=== PATIENT | male | born 1945 | race Caucasian/White ===

== ENCOUNTER 2017-08-01 08:43 | Inpatient (IN) | payer OTHER ==
[~2017-08-01] VITALS: Ht 190.5 cm; Wt 115.7 kg
--- NOTE | ~2017-08-01 | HC ---
[facility] [place] [address] CONSULTATION Name: JERI SETH Room #: 207-P ADM IN M.R.#: [id number] Admission: 08/01/17 Attend Phys: James Blue Discharge: Date of : 47 Report #: [id number] THIS REPORT FOR: //name// CC: Steffen Vazquez MD REASON FOR CONSULTATION: Abdominal pain, fever. HISTORY OF PRESENT ILLNESS: This 71-year-old male patient was seen in the [facility] Emergency Room with a 4-day history of epigastric abdominal pain. He also has had difficulty with nausea, vomiting and fever with temperature up to 102 degrees, now resolved. The patient has had diarrhea as well. 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 Vazquez, several weeks ago with similar symptoms. His symptoms resolved spontaneously. More recently, the patient saw his primary care physician, Dr. Moore, who referred him to the Emergency Room and he was admitted from there. Through the Emergency Room, he underwent a CT of the abdomen and pelvis, showing a low density lesion in the liver near the gallbladder fossa as well as gallstones and question of a gallbladder wall thickening. A small hiatal hernia was also seen. He then underwent an ultrasound showing mild enlargement of the common bile duct with cluster of stones in the gallbladder and a lesion in the liver adjacent to the gallbladder. This was suggestive of a cavernous hemangioma with recommendation for magnetic resonance imaging. I have been asked to see the patient for further evaluation and treatment. He does report worsening symptoms postprandially. He has had several similar episodes over the past 2 years, which spontaneously resolved. PAST MEDICAL HISTORY: Significant for hypertension and asthma. PAST SURGICAL HISTORY: Back surgery, appendectomy at 18 years old, tonsillectomy and adenoidectomy at 47 years old and eyelid surgery. HOME MEDICATIONS: Include budesonide, Osteo Bi-Flex, multivitamins, naproxen, Prilosec, Singulair, and Avalide. ALLERGIES: CODEINE causes nausea and vomiting. FAMILY HISTORY: Reviewed and noncontributory to this hospitalization. SOCIAL HISTORY: The patient denies use of tobacco or illicit drugs. He has 1-2 alcoholic drinks every 1-2 weeks. 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 [address] [address] CONSULTATION Name: JERI SETH MARIAH Room #: 207-P [facility] IN .R.#: [id number] Admission: 08/01/17 Attend Phys: James Blue Discharge: Date of : 47 Report #: [id number] REVIEW OF SYSTEMS: As per history of present illness. In addition: GENERAL: The patient reports fever and chills, now improved. Denies unintentional weight loss. HEENT: Denies changes in taste, vision, hearing, or smell. RESPIRATORY: Denies shortness of breath or COPD, has a history of asthma. CARDIOVASCULAR: Denies chest pain or palpitations. Has elevated troponin I levels. GASTROINTESTINAL: As per history of present illness. Denies bright red blood per rectum. Most recent colonoscopy was this past October by Dr. Steffen Silverman. He requires colonoscopy every 5 years for polyps. GENITOURINARY: Denies dysuria, urgency, increased urinary frequency or hematuria. MUSCULOSKELETAL: Denies myalgia or arthralgia. NEUROLOGIC: Denies headaches, numbness or tingling. PSYCHIATRIC: Denies depression, anxiety or suicidal ideations. SKIN AND INTEGUMENTARY: Denies new skin lesions, rashes, or moles. ENDOCRINE: Denies polydipsia, polyuria, heat or cold intolerance. HEMATOLOGIC: Denies easy bleeding, bruising or anemia. All other review of systems is negative. PHYSICAL EXAMINATION: VITAL SIGNS: Temperature 98.4, T-max 100.9, blood pressure 112/59, pulse 90, respirations 18. GENERAL: This is a well-developed, well-nourished 71-year-old male patient in no acute distress. HEENT: Atraumatic, normocephalic with moist mucosal membranes. Oropharynx is clear. He has no scleral icterus. NECK: Supple, no appreciable lymphadenopathy. Trachea is midline. CHEST: Clear bilaterally. CARDIOVASCULAR: Regular rate and rhythm. ABDOMEN: Soft, but tender to palpation in the upper epigastrium. He has negative Varela's sign, no rebound or guarding. No palpable masses, no appreciable hernias. GENITOURINARY: Normal external male genitalia. EXTREMITIES: No clubbing, cyanosis or edema. NEUROLOGIC: Cranial nerves 2-12 grossly intact. PSYCHIATRIC: Normal mood and affect. SKIN: No acute inflammatory changes, rashes or lesions present. LABORATORY STUDIES: CBC from this morning shows a white blood cell count 10.0, hemoglobin 15.7, hematocrit 46.0 and platelets 123. He had 80% segmented neutrophils. Electrolytes showed sodium 140, potassium 3.0, chloride 104, CO2 27, BUN 45, creatinine 1.5 and glucose 125. His lipase was normal at 228. Total bilirubin elevated at 1.3 and alkaline phosphatase elevated at 135. His transaminases were within normal limits. Lactate was at the upper end of normal [address] [place] [address] CONSULTATION Name: JERI SETH Room #: 207-P ADM IN M.R.#: [id number] Admission: 08/01/17 Attend Phys: James Blue Discharge: Date of : 47 Report #: [id number] at 2.0. Troponin I was elevated at 0.31. Follow up lactate was normal at 0.9. RADIOLOGIC STUDIES: Abdominal ultrasound and CT findings are as noted above. IMPRESSION AND PLAN: This is a 71-year-old male patient with a history of hypertension, reflux and asthma who has abdominal pain and gallstones. We discussed the pathophysiology and natural history of biliary disease as well as treatment alternatives and surgical options. The patient may benefit from cholecystectomy with cholangiogram. He would also benefit from further evaluation of his new hepatic lesion with MRI, as recommended by Radiology. The patient does have elevated levels and has been seen by cardiology. A stress echocardiogram has been ordered for tomorrow morning. If this is negative, would consider cholecystectomy. I would not want to proceed with cholecystectomy without having evaluated his new hepatic lesion adjacent to the gallbladder fossa, as this will be very close to the surgical site. The patient expressed understanding of the plan. I sincerely appreciate the opportunity to participate in the care of this patient and will leave further recommendations and orders in the electronic medical record as appropriate. <ELECTRONICALLY SIGNED> By: Devang Harrison MD, FACS 08/05/17 0716 1330 2130 Devang Harrison MD, FACS /nt
--- NOTE | ~2017-08-01 | EKG ---
[address] [address] ELECTROCARDIOGRAM REPORT Name: JERI SETH Room #: 207-P ADM IN M.R.#: [id number] Admission: 08/01/17 Attend Phys: James Blue Discharge: Date of : 47 Report #: [id number] THIS REPORT FOR: //name// [facility] ED Test Date: 2017-08-01 Test Time: 08:54:51 Pat Name: JERI SETH Department: Room: 207 Gender: M [employer] Clerk: HARITHA : 1945 Requested By: Anika Pearce Order Number: [id number] MD: Blue Suarez Measurements Intervals Sinclair Rate: 83 P: 55 TN: 174 QRS: -62 QRSD: 131 T: 76 QT: 414 QTc: 487 Interpretive Statements Sinus rhythm Left bundle branch block Compared to ECG 02/09/2013 11:26:05 Left bundle-branch block now present Sinus tachycardia no longer present Left-axis deviation no longer present Electronically Signed On 08-01-2017 21:02:40 CDT by Blue Suarez [email or web address] <ELECTRONICALLY SIGNED> By: Blue Suarez MD 08/01/17 2102 0854 0854 Blue Suarez MD /EPI
--- NOTE | ~2017-08-01 | S ---
[facility] [place] [address] SURGICAL PATH RPT PROCEDURE Name: JUNAID PRATT Room #: 423-1 ADM IN M.R.#: [id number] Admission: 08/01/17 Date of : 47 Discharge: Report #: [id number] Path Case #: [id number] PATHOLOGY REPORT COLLECTION DATE: 08/04/2017 RECEIVED DATE: 08/04/2017 SUBMITTING PHYS: Dr. James Blue OTHER PHYS: Dr. Fernando Harrison SPECIMEN(S) RECEIVED: A.Gallbladder and wedge resection liver bed * * * * * * * * * * * * FINAL DIAGNOSIS: Gallbladder and liver, cholecystectomy and wedge resection: - Gallbladder with necrotizing cholecystitis. - Gallbladder bed with hemorrhage. - Liver with mild periportal chronic inflammation. - Subcapsular liver with intraparenchymal hemorrhage. - No definitive liver lesion present, negative for malignancy. COMMENT: This case is co-reviewed by Dr. Arlene Dixon. PATHOLOGIST: Mark Davis M.D. REPORT ELECTRONICALLY SIGNED BY: Mark Davis M.D. DATE/TIME: 08/06/2017 11:45 * * * * * * * * * * * * GROSS PATHOLOGY: Received in formalin labeled "Junaid Pratt, gallbladder and wedge resection liver bed," is a 9.7 x 4.1 x 3.8 cm, previously opened gallbladder with pink-randhawa serosal surfaces. There is a moderate amount of attached white brown liver tissue measuring 5.7 x 3.2 x 0.5 cm. Opening the gallbladder reveals a velvety, red-brown mucosa and an average wall thickness of 0.1 cm. Calculi are not present and no masses are noted grossly. Video Game Animator sections from the body and fundus are submitted along with the proximal margin in cassette A1. Video Game Animator sections of the liver tissue are submitted in cassette A2. (CAA; 08/05/2017) CLINICAL HISTORY: Cholecystitis [facility] [address] [place] [address] SURGICAL PATH RPT PROCEDURE Name: ROLOJUNAID MARIAH Room #: [facility] ADM IN M.R.#: [id number] Admission: 08/01/17 Date of : 47 Discharge: Report #: [id number] Path Case #: [id number] INITIAL CPT CODE(S): A; 51661, 90582 Professional services performed by [facility] at [address] [place] [address] Technical services performed by [facility] at [address] [place] [address], [address] [address]. [facility] [place] [address] PHONE: [phone] DIRECTOR: Dexter Buchanan M.D. * * * END OF REPORT * * *
--- NOTE | ~2017-08-01 | HC ---
[facility] [place] [address] CONSULTATION Name: JERI SETH Room #: 207-[facility] IN M.R.#: [id number] Admission: 08/01/17 Attend Phys: James Blue Discharge: Date of : 47 Report #: [id number] THIS REPORT FOR: //name// CC: Fernando Blue DATE OF SERVICE: 08/01/2017 INDICATION: Positive troponins. HISTORY OF PRESENT ILLNESS: This is a 71-year-old gentleman presenting with abdominal pain and fevers for the past 4 days. He reports a dull ache all over his abdomen, on and off. It was associated with nausea, loss of appetite, fever and chills. He denies any episodes of chest pain, shortness of breath or palpitations. The troponin is elevated at 0.33. The patient has a history of asthma and hypertension. PAST MEDICAL HISTORY: Hypertension and asthma. ALLERGIES: CODEINE. MEDICATIONS: Include Avalide 150/12.5 mg daily, Singulair, Prilosec, Naprosyn. SOCIAL HISTORY: Denies tobacco use. FAMILY HISTORY: Negative for premature CAD. REVIEW OF SYSTEMS: A full 10-point review of systems performed. Only the pertinent positives and negatives are described in the HPI. PHYSICAL EXAMINATION: VITAL SIGNS: Blood pressure is 120/60, heart rate is 90 beats per minute. GENERAL APPEARANCE: This is an overweight male in no acute respiratory distress. HEAD AND EYES: Normocephalic. Sclerae are anicteric. ENT: Oral mucosa moist. NECK: Supple. LUNGS: Clear to auscultation. ABDOMEN: Soft, nontender. Bowel sounds positive. EXTREMITIES: No cyanosis, no edema. NEUROLOGIC: Alert and oriented x 3. LABORATORY VALUES: White count is 10.0, hemoglobin 15.7, sodium is 140, creatinine is 1.5. First troponin is 0.33, second troponin is 0.31. Abdominal ultrasound reveals gallstones. [address] [address] CONSULTATION Name: JERI SETH Room #: [facility] ADM IN M.R.#: [id number] Admission: 08/01/17 Attend Phys: James Blue Discharge: Date of : 47 Report #: [id number] ECG reveals sinus rhythm, nonspecific IVCD, nonspecific T-wave abnormalities. ASSESSMENT AND PLAN: 1. 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 Await surgical evaluation for gallbladder. 2. Peak troponin of 0.33, the significance is unclear at this time. He does have risk factors and will require an ischemic evaluation. He remains clinically stable at this time. We will schedule an echo for now. Once his abdominal process has been treated, he will need an ischemic evaluation. 3. Hypertension, continue with medications. 4. Asthma, stable from a respiratory standpoint. Thank you for allowing me to participate in the care of your patient. <ELECTRONICALLY SIGNED> By: Abimael Sevilla MD 08/02/17 0736 1706 17 Abimael Sevilla MD /ramses
--- NOTE | ~2017-08-01 | O ---
[facility] [place] [address] OPERATIVE REPORT Name: JERI SETH Room #: 207-P ADM IN M.R.#: [id number] Admission: 08/01/17 Attend Phys: James Blue Discharge: Date of : 47 Report #: [id number] THIS REPORT FOR: //name// CC: Fernando Blue DATE OF SERVICE: 08/03/2017 SURGEON: Devang Harrison MD PIE MAKER MACHINE: Rogelio Day MD PREOPERATIVE DIAGNOSES: 1. Acute cholecystitis. 2. Hepatic lesion. 3. Hypertension. 4. Asthma. POSTOPERATIVE DIAGNOSES: 1. Acute on chronic cholecystitis. 2. Hepatic lesion. 3. Hypertension. 4. Asthma. PROCEDURES: 1. Laparoscopic cholecystectomy with intraoperative cholangiogram and wedge resection of the gallbladder fossa. 2. This is a modifier 22 operation based on the length of time necessary to perform the operation whereby the operation took 4 times longer than the usual cholecystectomy with cholangiogram. The back wall of the gallbladder was both acutely and chronically inflamed with no clear plane between the gallbladder wall and liver bed. This required division of the liver for removal of the gallbladder (wedge resection). The lesion seen on the MRI was felt to have been taken with the specimen. ANESTHESIA: General endotracheal anesthesia and local anesthetic. ESTIMATED BLOOD LOSS: 300 mL. SPECIMEN: Gallbladder with wedge resection of the gallbladder fossa. COMPLICATIONS: None appreciated. INDICATION FOR PROCEDURE: This 71-year-old male patient was seen in the [place] Emergency Room with a 4-day history of epigastric abdominal pain, nausea, [facility] [address] [place] [address] OPERATIVE REPORT Name: JERI SETH MARIAH Room #: 207-P ADM IN M.R.#: [id number] Admission: 08/01/17 Attend Phys: James Blue Discharge: Date of : 47 Report #: [id number] vomiting and fever with a temperature up to 102 degrees Fahrenheit. The patient has had symptoms for quite some time. 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 His symptoms resolved spontaneously. More recently, the patient was seen by his primary care physician who referred him to the Emergency Room. He underwent a CT of the abdomen and pelvis, which revealed a low density lesion in the liver near the gallbladder fossa as well as gallstones and gallbladder wall thickening. Ultrasound showed enlargement of the common bile duct with a cluster of stones in the gallbladder and a lesion in the liver adjacent to the gallbladder. This was suggestive of a cavernous hemangioma. An MRI was ultimately performed, which revealed this to be an inflammatory mass or abscess. Necrotic tumor was not excluded. The patient presents now for laparoscopic cholecystectomy with cholangiogram. OPERATIVE FINDINGS: Upon entrance into the abdominal cavity, the gallbladder appeared to be acutely inflamed. It required drainage with a Topel needle in order to grasp the gallbladder. The wall itself was thickened with both acute and chronic inflammatory changes. The critical view consisting of cystic artery, cystic duct and lower edge of the gallbladder forming a window through which the liver was visible was seen prior to clipping the cystic duct for cholangiogram. Attempted cholangiogram showed filling of the cystic duct; however, there was no passage of contrast into the common bile duct or intrahepatic ducts. The back wall of the gallbladder adjacent to the liver was both acutely and chronically inflamed and no clear plane between the gallbladder and liver bed existed. Removal of the gallbladder required division of the liver such that a wedge resection was essentially performed. No other significant intraabdominal pathology was identified. FloSeal was applied to the liver bed after completely cauterizing the liver bed to ensure hemostasis. At the conclusion of the operation, sponge, needle, and instrument counts were correct. The gallbladder was opened on the back table after its removal. Bilirubinate stones were seen within the gallbladder. The wall was thickened and a firm thickened back wall was present. DESCRIPTION OF PROCEDURE IN DETAIL: After the risks, benefits and expectations of the operation were discussed in detail with the patient, informed consent was obtained. The patient was identified in the preoperative following area. He was given IV antibiotics as documented in the chart in line with [facility] metrics. The patient was then taken to the operating room and he was placed in the supine position. SCDs were placed on the patient's bilateral lower extremities and pneumatic compression was initiated. The patient was then given IV sedation and he was intubated without incident. His abdomen was prepped and draped in standard sterile fashion. Timeout was performed to identify the correct patient and procedure. Local anesthetic was infiltrated into the skin and subcutaneous tissue in the right subcostal area. A small transverse incision was made and a 5 mm Visiport was placed intraperitoneally with a 0-degree angled laparoscope. [address] [address] OPERATIVE REPORT Name: JERI SETH Room #: 207-P [facility] IN M.R.#: [id number] Admission: 08/01/17 Attend Phys: James Blue Discharge: Date of : 47 Report #: [id number] Pneumoperitoneum was achieved with insufflation of carbon dioxide to 15 mmHg. A supraumbilical 11 mm port was then placed under direct visualization after local anesthetic was infiltrated into the skin and subcutaneous tissue and an appropriately sized incision was made. The patient was placed in the reverse Trendelenburg position, rotated to his left. A 30-degree angled laparoscope was inserted. A subxiphoid 5 mm port and right lateral 5 mm port were each placed under direct visualization using a similar technique. Findings are as noted above. The gallbladder was unable to be grasped easily. A 60 mL syringe with Topel needle was used to drain the gallbladder in order to be able to grasp the gallbladder itself. The gallbladder was then reflected in a cephalad direction. The thick rind that was present was scored with the ultrasonic dissector. Dissection was carried out around the cystic artery and cystic duct to identify both structures as the only 2 structures entering the gallbladder. This took quite some time as there were both acute and chronic inflammatory changes present. Ultimately, the ductal structure felt to represent the cystic duct was isolated. A clip was placed at its junction with the neck of the gallbladder. A ductotomy was then created. Cholangiocatheter was inserted and cholangiogram was performed. There was extravasation of contrast and contrast did not flow beyond the cystic duct. The catheter was then removed. The cystic duct was further clipped; however, the clips did not traverse the entire width of the duct. The duct was then divided with the ultrasound dissector and a PDS Endoloop was used to secure the duct. The gallbladder was then dissected out of the liver bed with the ultrasonic dissector. The cystic artery was divided with good hemostasis. The gallbladder itself was quite adherent to the liver and no clear plane could be developed without resecting the liver. This included the mass that was seen on the MRI. I attempted to remove the gallbladder from multiple angles including dome down inferior to superior and lateral to medial. Ultimately, I was able to remove the entire gallbladder. Hemostasis was achieved. While removing the gallbladder from the liver bed, there was a slight ooze; however, this was controlled with electrocautery. After fully detaching the gallbladder from the liver bed, the gallbladder was placed in an Endopouch and removed through the supraumbilical port site. This required a significant amount stretching of the fascia and widening of the incision to remove the gallbladder. After it was removed from the patient's abdominal cavity, a lfgaap-cs-duphp 0 PDS suture was placed and tagged. The port was then replaced. The abdominal cavity was reinsufflated. The liver bed was examined for hemostasis. Electrocautery was used to cauterize the entire liver bed that was raw and oozing. There was adequate hemostasis after this maneuver. Decision was made to apply FloSeal to the liver bed as an adjunct to prevent further bleeding. The abdominal cavity was irrigated and suctioned until return of all drainage ultimately ran clear. There was significant blood loss associated with having to perform the wedge resection. At the conclusion of the operation, the sponge, needle and instrument counts were correct. No other significant intraabdominal pathology was identified, although there is concern for chronic [address] [address] OPERATIVE REPORT Name: JERI SETH Room #: 207-P [facility] IN M.R.#: [id number] Admission: 08/01/17 Attend Phys: James Blue Discharge: Date of : 47 Report #: [id number] inflammation that could represent malignancy. The litles-jn-gdhyg 0 PDS suture was tied under direct visualization after removing the 11 mm port. It was ensured that no intra-abdominal content was included with the closure. The abdominal cavity was then desufflated and the ports were removed. Interrupted subcuticular 4-0 Monocryl sutures and Dermabond were used to close the skin incisions. The patient tolerated the procedure well. He was awakened, extubated, and taken to the recovery room in stable condition with no apparent intraoperative complications. <ELECTRONICALLY SIGNED> By: Devang Harrison MD, FACS 08/05/17 0716 0015 0139 Devang Harrison MD, FACS /nt
--- NOTE | ~2017-08-01 | 2DMMODE ---
[facility] [address] [place] [address] 2 D/M-MODE ECHOCARDIOGRAM Name: JERI SETH Room #: 207-P ADM IN M.R.#: [id number] Admission: 08/01/17 Attend Phys: James Enciso Discharge: Date of : 47 Date of Service: 08/02/17 1356 Report #: [id number] THIS REPORT FOR: //name// APPROVED REPORT Study performed: 08/02/2017 11:11:58 EXAM: Comprehensive 2D, Doppler, and color-flow Echocardiogram Patient Location: Bedside Room #: 207 Status: on-call BSA: 2.44 HR: 75 bpm BP: 110/69 mmHg Rhythm: LBBB Other Information Study Quality: Adequate Risk Factors: Cardiac Risk Factors: HTN Indications Dyspnea 2D Dimensions LVEF(%): 48.36 (>50%) IVSd: 12.09 (7-11mm) LVOT Diam: 20.00 (18-24mm) LVDd: 47.02 mm PWd: 12.49 (7-11mm) LVDs: 35.58 (25-40mm) LV Single Plane 4CH: 48.27 % LV Single Plane 2CH: 50.33 % Tavarez's LVEF: 49.30 % Biplane EF: 49.6 % Volumes Left Atrial Volume (Systole) Single Plane 4CH: 59.82 mL Single Plane 2CH: 51.48 mL LA ESV Index: 24.00 mL/m2 Aortic Valve AoV Peak Frederic.: 1.34 m/s AO Peak Gr.: 7.96 mmHg LVOT Max P.22 mmHg LVOT Max V: 0.90 m/s ESTHER Vmax: 2.15 cm2 [facility] [address] [place] [address] 2 D/M-MODE ECHOCARDIOGRAM Name: JERI SETH Room #: [address] [place] [address] IN ..#: [id number] Admission: 08/01/17 Attend Phys: James Enciso Discharge: Date of : 47 Date of Service: 08/02/17 1356 Report #: [id number] Mitral Valve E/A Ratio: 0.8 MV Decel. Time: 227.61 ms MV E Max Frederic.: 0.61 m/s MV A Frederic.: 0.76 m/s MV PHT: 66.01 ms IVRT: 83.04 ms Pulmonary Valve PV Peak Frederic.: 0.78 m/s PV Peak Gr.: 2.44 mmHg Pulmonary Vein P Vein S: 0.59 m/s P Vein A: 0.28 m/s P Vein D: 0.65 m/s P Vein A Dur.: 145.3 msec P Vein S/D Ratio: 0.91 Tricuspid Valve TR Peak Frederci.: 2.39 m/s RAP Estimate: 5.00 mmHg TR Peak Gr.: 22.88 mmHg PA Pressure: 28.00 mmHg Left Ventricle The left ventricle is normal size. There is normal LV segmental wall motion. Mild concentric left ventricular hypertrophy. Left ventricular systolic function is borderline. LVEF is 50%. Grade I - abnormal relaxation pattern. Right Ventricle The right ventricle is normal size. The right ventricular systolic function is normal. Atria The left atrium size is normal. The right atrium size is normal. Aortic Valve The aortic valve is normal in structure. Mild aortic regurgitation. There is no aortic valvular stenosis. Mitral Valve The mitral valve is normal in structure. Mild mitral regurgitation. No evidence of mitral valve stenosis. Tricuspid Valve The tricuspid valve is normal in structure. Mild tricuspid [facility] [address] [place] [address] 2 D/M-MODE ECHOCARDIOGRAM Name: JERI SETH MARIAH Room #: 207-P [facility] IN .R.#: [id number] Admission: 08/01/17 Attend Phys: James Enciso Discharge: Date of : 47 Date of Service: 08/02/17 1356 Report #: [id number] regurgitation. Pulmonic Valve The pulmonary valve is normal in structure. There is no pulmonic valvular regurgitation. Great Vessels The aortic root is normal in size. IVC is normal in size and collapses with >50% inspiration Pericardium There is no pericardial effusion. <Conclusion> The left ventricle is normal size. Left ventricular systolic function is borderline. Grade I - abnormal relaxation pattern. The right ventricle is normal size. The left atrium size is normal. Mild aortic regurgitation. Mild mitral regurgitation. Mild tricuspid regurgitation. There is no pericardial effusion. <ELECTRONICALLY SIGNED> By: Abimael Sevilla MD 08/02/17 1356 1356 135 Abimael Sevilla MD /INF
[~2017-08-01 08:43] MED LIST: BUDESONIDE0.5 MG/2 M IH; COLACE100 MG; FISH OIL 1,4001 EACH PO; FLEXERIL PO; FORADIL12 MCG INH; HYDROCHLOROTH12.5 MG PO; HYDROCODON-ACE1 EAC7 PO; LISINOPRIL20 MG PO; MULTI-VITAMIN1 EAC5 PO; NAPROSYN500 MG PO; NEURONTIN 300300 M1 PO; OSTEO BI-FLEX1 EAC2 PO; PERFORMIST; PREDNISONE 10 M10 MG PO; PRILOSEC 20 MG20 MG PO; PRINZIDE 20-121 EACH PO; ROBAXIN 750 MG750 M1; ROXICODONE5 M1 PO; XOLAIR
[2017-08-01 09:23] LABS: HEMOGLOBIN 15.7 gm/dL (14.0-18.0); MCHC 34.3 g/dL (28.0-37.0); MCV 90.4 fL (80.0-100.0); PLATELET COUNT 122 thou/uL (150-400); RBC 5.08 mil/uL (4.50-6.00); RDW 13.5 % (10.5-14.5)
[2017-08-01 09:25] LABS: MANUAL DIFF YES
[2017-08-01 09:34] LABS: CALCIUM 9.4 mg/dL (8.5-10.1); CREATININE 1.5 mg/dL (0.7-1.3)
[2017-08-01] MEDS ORDERED: SINGULAIR 10 MG10 M1 PO (09:34)
[2017-08-01] MEDS ORDERED: AVALIDE 150-121 EACH PO (09:36)
[2017-08-01 09:39] LABS: ALBUMIN 3.3 g/dL (3.4-5.0); DIRECT BILIRUBIN 0.3 mg/dL (<0.1-0.3); TOTAL BILIRUBIN 1.3 mg/dL (<0.1-1.0); TOTAL PROTEIN 7.1 g/dL (6.4-8.2); TROPONIN-I 0.33 ng/mL (<0.04-0.07)
[2017-08-01 09:51] LABS: ABSOLUTE NEUTROPHILS 8.1 thou/uL (1.4-8.2); PLATELET ESTIMATE NORMAL; TOTAL CELL COUNT 100
[2017-08-01 10:59] LABS: URINE BILIRUBIN NEGATIVE (Negative); URINE BLOOD NEGATIVE (Negative); URINE COLOR YELLOW; URINE GLUCOSE-RANDOM* NEGATIVE (Negative); URINE KETONES NEGATIVE (Negative); URINE NITRITE NEGATIVE (Negative); URINE PROTEIN (DIPSTICK) NEGATIVE (Negative); URINE SPECIFIC GRAVITY 1.025 (1.003-1.035); URINE UROBILINOGEN 0.2 E.U./dl (0.2-1.0)
[2017-08-01 12:23] VITALS: BP 112/74
[2017-08-01 13:01] LABS: INR 1.1
[2017-08-01 14:13] VITALS: BP 118/56
[2017-08-01 14:35] VITALS: BP 101/57; BP 1101/57
[2017-08-01 16:00] VITALS: BP 112/59
[2017-08-01] MEDS ORDERED: FLAGYL500 MG PO (16:00)
[2017-08-01] MEDS ORDERED: NAPROSYN500 MG PO (16:01)
[2017-08-01] MEDS ORDERED: CIPRO500 MG PO (16:02)
[2017-08-01] MEDS ORDERED: IRBESARTAN-HCT1 EACH PO (16:03)
[2017-08-01 20:15] VITALS: BP 110/75
[2017-08-01 23:58] VITALS: BP 99/61
[2017-08-02 03:47] VITALS: BP 105/69
[2017-08-02 04:00] LABS: ALBUMIN 2.4 g/dL (3.4-5.0); ALKALINE PHOSPHATASE 153 U/L (46-116); ANION GAP 6 mmol/L (7-16); BUN 38 mg/dL (7-18); CALCIUM 8.2 mg/dL (8.5-10.1); CHLORIDE 111 mmol/L (98-107); CHOLESTEROL 85 mg/dL (<200); CO2 26 mmol/L (21-32); CREATININE 1.1 mg/dL (0.7-1.3); GLUCOSE 109 mg/dL (74-106); LDL CHOLESTEROL 47 mg/dL (<100); POTASSIUM 3.6 mmol/L (3.5-5.1); SGOT 43 U/L (15-37); SGPT 45 U/L (30-65); SODIUM 143 mmol/L (136-145); TC:HDL 12.1 Ratio (Not establshd); TOTAL BILIRUBIN 1.2 mg/dL (<0.1-1.0); TOTAL PROTEIN 5.4 g/dL (6.4-8.2); TRIGLYCERIDE 156 mg/dL (<150); TROPONIN-I 0.27 ng/mL (<0.04-0.07); VLDL 31 mg/dL (<40)
[2017-08-02 04:30] LABS: HDL CHOLESTEROL 7 mg/dL (>40); SERUM ASSESSMENT Clear
[2017-08-02 08:15] VITALS: BP 110/69
[2017-08-02 15:50] VITALS: BP 115/54
[2017-08-02 19:45] VITALS: BP 111/71
[2017-08-03 03:36] LABS: HEMATOCRIT 36.5 % (42.0-52.0); MCH 30.4 pg (26.0-34.0); MCHC 33.6 g/dL (28.0-37.0); MCV 90.5 fL (80.0-100.0); RBC 4.04 mil/uL (4.50-6.00); RDW 13.7 % (10.5-14.5); WBC 6.3 thou/uL (4.0-11.0)
[2017-08-03 03:37] LABS: HEMOGLOBIN 12.3 gm/dL (14.0-18.0)
[2017-08-03 03:55] LABS: ALBUMIN 2.4 g/dL (3.4-5.0); CALCIUM 8.3 mg/dL (8.5-10.1); TOTAL BILIRUBIN 0.9 mg/dL (<0.1-1.0); TOTAL PROTEIN 5.2 g/dL (6.4-8.2)
[2017-08-03 04:10] LABS: POTASSIUM 2.9 mmol/L (3.5-5.1)
[2017-08-03 04:45] VITALS: BP 109/61
[2017-08-03 07:50] VITALS: BP 127/75
[2017-08-03 12:05] VITALS: BP 130/79
[2017-08-03 17:30] VITALS: BP 134/81
[2017-08-03 19:23] VITALS: BP 124/80
[2017-08-04] VITALS (11 sets, daily range): BP systolic 117–145; BP diastolic 70–103
[2017-08-04 03:43] LABS: MCH 30.8 pg (26.0-34.0); MCHC 34.3 g/dL (28.0-37.0); MCV 89.8 fL (80.0-100.0); RBC 3.89 mil/uL (4.50-6.00); RDW 13.4 % (10.5-14.5); WBC 6.3 thou/uL (4.0-11.0)
[2017-08-04 04:01] LABS: ALBUMIN 2.4 g/dL (3.4-5.0); CALCIUM 8.4 mg/dL (8.5-10.1); CREATININE 0.9 mg/dL (0.7-1.3); POTASSIUM 3.2 mmol/L (3.5-5.1); TOTAL BILIRUBIN 1.2 mg/dL (<0.1-1.0)
[2017-08-05 03:02] VITALS: BP 144/74
[2017-08-05 08:11] VITALS: BP 135/72
[2017-08-05 09:33] LABS: HEMATOCRIT 41.7 % (42.0-52.0); MCH 30.4 pg (26.0-34.0); MCHC 33.8 g/dL (28.0-37.0); MCV 90.1 fL (80.0-100.0); RBC 4.62 mil/uL (4.50-6.00); RDW 13.7 % (10.5-14.5); WBC 12.8 thou/uL (4.0-11.0)
[2017-08-05 09:35] LABS: HEMOGLOBIN 14.1 gm/dL (14.0-18.0); MANUAL DIFF YES; PLATELET COUNT 187 thou/uL (150-400)
[2017-08-05 09:42] LABS: CALCIUM 8.7 mg/dL (8.5-10.1); CREATININE 0.9 mg/dL (0.7-1.3); POTASSIUM 4.1 mmol/L (3.5-5.1)
[2017-08-05 10:12] LABS: ABSOLUTE NEUTROPHILS 10.8 thou/uL (1.4-8.2); PLATELET ESTIMATE NORMAL; TOTAL CELL COUNT 100
[2017-08-05 11:28] VITALS: BP 114/75
[2017-08-05 15:17] VITALS: BP 116/59
[2017-08-05 20:00] VITALS: BP 130/65
[2017-08-06 05:06] VITALS: BP 130/68
[2017-08-06 06:33] LABS: ALBUMIN 2.6 g/dL (3.4-5.0); CALCIUM 8.2 mg/dL (8.5-10.1); CREATININE 0.7 mg/dL (0.7-1.3); POTASSIUM 3.6 mmol/L (3.5-5.1); TOTAL BILIRUBIN 1.9 mg/dL (<0.1-1.0); TOTAL PROTEIN 5.1 g/dL (6.4-8.2)
[2017-08-06 07:45] VITALS: BP 130/74
[2017-08-06] MEDS ORDERED: AUGMENTIN 875-1 EACH PO (10:15)
[2017-08-06 11:22] VITALS: BP 130/74
== END 2017-08-06 11:51 | disposition home or self-care (01) | DRG 853 ==
LOC: ER 08:43 → EROBS 11:48 → 2N 11:48 → EROBS 14:25 → 2N 15:16 → 4E 08-05 19:04 → ENTRNSPT 08-06 11:43 → EDTRNSPTSTS 08-06 11:47 → 4E 08-06 11:51
PROVIDERS: Emergency Medicine; Hospitalist; Surgery
PROC: 0FB04ZZ Excision of Liver, Percutaneous Endoscopic Approach (ICD-10-PCS; principal; 2017-08-03)
PROC: 0FT44ZZ Resection of Gallbladder, Percutaneous Endoscopic Approach (ICD-10-PCS; principal; 2017-08-03)
PROC: BF121ZZ Fluoroscopy of Gallbladder using Low Osmolar Contrast (ICD-10-PCS; principal; 2017-08-03)
DX: A41.9 Sepsis, unspecified organism (principal); E43 Unspecified severe protein-calorie malnutrition; N17.9 Acute kidney failure, unspecified; K81.0 Acute cholecystitis; K83.0 Cholangitis; I10 Essential (primary) hypertension; E87.6 Hypokalemia; J45.909 Unspecified asthma, uncomplicated; K21.9 Gastro-esophageal reflux disease without esophagitis; K81.1 Chronic cholecystitis; K76.9 Liver disease, unspecified; K29.70 Gastritis, unspecified, without bleeding; Z79.899 Other long term (current) drug therapy; Z28.21 Immunization not carried out because of patient refusal; Z88.6 Allergy status to analgesic agent; Z90.49 Acquired absence of other specified parts of digestive tract; Z68.31 Body mass index [BMI] 31.0-31.9, adult
CPT/HCPCS: 10081; 10783; 50010; 50101; 50249; 50411; 50555; 50558; 50900; 50962; 51297; 51489; 51751; 51975; 52265; 52266; 53307; 54022; 54118; 55245; 55317; 56462; 56525; 56526; 56970; 62110; 62900; 70005

== ENCOUNTER → 2020-03-31 | Outpatient (CLI) | payer OTHER | LOC: SJCVC 13:16 | DX: R94.31 Abnormal electrocardiogram [ECG] [EKG] (principal); I44.4 Left anterior fascicular block; I10 Essential (primary) hypertension; E78.5 Hyperlipidemia, unspecified; J45.40 Moderate persistent asthma, uncomplicated; G25.3 Myoclonus ==

== ENCOUNTER → 2020-10-02 | Outpatient (CLI) | payer OTHER ==
[~2020-10-02] MED LIST changes: +AUGMENTIN 875-1 EACH PO; +AVALIDE 150-121 EACH PO; +CIPRO500 MG PO; +FLAGYL500 MG PO; +IRBESARTAN-HCT1 EACH PO; +SINGULAIR 10 MG10 M1 PO
== END ==
LOC: SJCVC 12:57
PROVIDERS: ATTEND Internal Medicine
DX: R94.31 Abnormal electrocardiogram [ECG] [EKG] (principal); I44.7 Left bundle-branch block, unspecified; I10 Essential (primary) hypertension; E78.5 Hyperlipidemia, unspecified; J45.40 Moderate persistent asthma, uncomplicated; G25.3 Myoclonus; Z79.899 Other long term (current) drug therapy

== ENCOUNTER → 2021-04-02 | Outpatient (CLI) | payer OTHER | LOC: SJCVC 14:25 | PROVIDERS: ATTEND Internal Medicine | DX: R94.31 Abnormal electrocardiogram [ECG] [EKG] (principal); I45.4 Nonspecific intraventricular block; I10 Essential (primary) hypertension; E78.5 Hyperlipidemia, unspecified; J45.40 Moderate persistent asthma, uncomplicated; G25.3 Myoclonus; J45.909 Unspecified asthma, uncomplicated; Z90.49 Acquired absence of other specified parts of digestive tract; Z88.5 Allergy status to narcotic agent; Z88.8 Allergy status to other drugs, medicaments and biological substances; Z79.899 Other long term (current) drug therapy; Z87.891 Personal history of nicotine dependence; Z82.49 Family history of ischemic heart disease and other diseases of the circulatory system ==

== ENCOUNTER → 2021-10-04 | Outpatient (CLI) | payer OTHER | LOC: SJCVC 12:21 | PROVIDERS: ATTEND Internal Medicine | DX: R94.31 Abnormal electrocardiogram [ECG] [EKG] (principal); I45.4 Nonspecific intraventricular block; I10 Essential (primary) hypertension; E78.5 Hyperlipidemia, unspecified; J45.40 Moderate persistent asthma, uncomplicated; G25.3 Myoclonus; Z86.74 Personal history of sudden cardiac arrest; Z72.89 Other problems related to lifestyle; Z79.899 Other long term (current) drug therapy; Z88.5 Allergy status to narcotic agent; Z88.1 Allergy status to other antibiotic agents; Z88.8 Allergy status to other drugs, medicaments and biological substances; Z82.49 Family history of ischemic heart disease and other diseases of the circulatory system ==